=== PATIENT | male | born 1930 | race Caucasian/White ===

== ENCOUNTER 2017-05-05 09:53 | Inpatient (IN) | payer MEDICARE, BC ==
[~2017-05-05] VITALS: Ht 185.4 cm; Wt 73.2 kg
[2017-05-05] MEDS ORDERED: diltiazem 5mg/ml 5ml inj. IV ONE ×2 (10:15→11:15)
[2017-05-05 10:30] LABS: BASOPHILS % (AUTO) 0.4 % (0-1); EOSINOPHILS # (AUTO) 0.1 X10'3 (0-0.9); EOSINOPHILS % (AUTO) 1.2 % (0-6); HEMATOCRIT 37.5 % (42.0-52.0); HEMOGLOBIN 12.7 g/dl (14.0-17.9); INR 1.1 INR; LYMPHOCYTES # (AUTO) 0.6 X10'3 (1.1-4.8); LYMPHOCYTES % (AUTO) 4.8 % (21-51); MEAN CORPUSCULAR HEMOGLOBIN 31.7 PG (27.0-31.0); MEAN CORPUSCULAR VOLUME 93.3 FL (78-98); MEAN PLATELET VOLUME 7.6 FL (7.4-10.4); MONOCYTES # (AUTO) 1.1 X10'3 (0-0.9); MONOCYTES % (AUTO) 9.8 % (2-12); NEUTROPHILS # (AUTO) 9.6 X10'3 (1.8-7.7); NEUTROPHILS % (AUTO) 83.8 % (42-75); PARTIAL THROMBOPLASTIN TIME 33 SECONDS (22-32); PLATELET COUNT 240 X10'3 (140-440); PROTHROMBIN TIME 11.6 SECONDS (9.0-12.0); RED BLOOD COUNT 4.02 X10'6 (4.70-6.10); RED CELL DISTRIBUTION WIDTH 13.9 % (11.5-14.5); WHITE BLOOD COUNT 11.5 X10'3 (4.5-11.0)
[2017-05-05] MEDS ORDERED: diltiazem-D5W 125mg/125ml 125 ML IV ONE (10:30)
[2017-05-05] MEDS ORDERED: NO HOME MEDS (10:39)
[2017-05-05 10:42] LABS: ALBUMIN 2.7 G/DL (3.4-5.0); BLOOD UREA NITROGEN 29 MG/DL (7-18); CHLORIDE 109 MMOL/L (99-107)
[2017-05-05 11:00] LABS: ALANINE AMINOTRANSFERASE 20 U/L (12-78); ALBUMIN/GLOBULIN RATIO 0.8 (1.1-1.5); ALKALINE PHOSPHATASE 79 IU/L (46-116); ANION GAP 13 (8-16); ASPARTATE AMINO TRANSFERASE 17 U/L (10-37); BILIRUBIN,TOTAL 3.7 MG/DL (0.1-1.0); BUN/CREATININE RATIO 31.2 (5.4-32.0); CALCIUM 9.1 MG/DL (8.5-10.1); CREATININE 0.93 MG/DL (0.60-1.10); GLUCOSE 134 MG/DL (70-104); POTASSIUM 3.7 MMOL/L (3.5-5.1); SODIUM 145 MMOL/L (135-145); TOTAL CARBON DIOXIDE 23.4 MMOL/L (24-32); eGFR 77 ML/MIN
[2017-05-05] MEDS ORDERED: potassium Cl 20 mEq SR tablet PO PRN (13:15)
[2017-05-05] MEDS: K and/or MAG REPLACEMENT MC SCH (13:15)
[2017-05-05] MEDS ORDERED: ondansetron/PF 4mg/2ml inj IV PRN (13:15)
[2017-05-05] MEDS ORDERED: magnesium 2GM in 50ml NS 50 ML IV PRN (13:15)
[2017-05-05] MEDS ORDERED: acetaminophen 325mg tablet PO PRN ×2 (13:15)
[2017-05-05] MEDS ORDERED: magnesium 4gm in 100ml NS 100 ML IV PRN (13:15)
[2017-05-05] MEDS ORDERED: potassium Cl 40MEQ/NS 500ml 500 ML IV PRN ×2 (13:15)
[2017-05-05] MEDS ORDERED: magnesium hydroxide 30ml (MOM) UD suspension PO PRN (13:15)
[2017-05-05] MEDS ORDERED: diltiazem-D5W 125mg/125ml 125 ML IV SCH ×2 (13:15→21:15)
[2017-05-05] MEDS ORDERED: mag hydrox/Alum hydrox/simeth 30ml oral suspension PO PRN (13:15)
[2017-05-05] MEDS ORDERED: magnesium Cl slow-release 64mg tablet PO PRN (13:15)
[2017-05-05] MEDS ORDERED: HYDROcodone/acetaminophen 10/325mg tab PO PRN (13:15)
[2017-05-05] MEDS ORDERED: HYDROcodone/acetaminophen 5mg/325mg tablet PO PRN (13:15)
[2017-05-05] MEDS ORDERED: sod chloride 0.9% 10ml flush syringe IV ONE (15:00)
[2017-05-05] MEDS ORDERED: amiodarone 50MG/ML inj IV ONE (15:30)
[2017-05-05] MEDS ORDERED: amiodarone 150mg/dext, iso-os 100 ML IV ONE (15:40)
[2017-05-05] MEDS: amiodarone 150mg/dext, iso-os 100 ML IV SCH ×2 (15:52→16:10)
[2017-05-05] MEDS: diltiazem 30mg tablet PO SCH ×2 (15:54→20:15)
[2017-05-05] MEDS: heparin, porcine 5000 units/ml vial SQ SCH (16:00)
[2017-05-05] MEDS: amiodarone/D5 360MG/200ML BAG 200 ML IV SCH (16:17)
[2017-05-05] MEDS ORDERED: furosemide 20 MG/2 ML vial IV SCH (18:55)
[2017-05-05] MEDS ORDERED: diltiazem 30mg tablet PO SCH (19:00)
[2017-05-05] MEDS ORDERED: temazepam 15mg capsule PO PRN (21:00)
[2017-05-05] MEDS: LORazepam 2 mg/ml vial IV PRN (23:16)
[2017-05-05] MEDS ORDERED: amiodarone/D5 360MG/200ML BAG 200 ML IV ONE (23:46)
[2017-05-06] VITALS (14 sets, daily range): BP systolic 90–159; BP diastolic 67–138
[2017-05-06] MEDS: diltiazem 30mg tablet PO SCH ×4 (01:51→19:47)
[2017-05-06] MEDS: heparin, porcine 5000 units/ml vial SQ SCH ×3 (02:00→16:36)
[2017-05-06 02:11] LABS: ABG BASE EXCESS -1.9 mmol/L (-2.0-3.0); ABG HCO3 23.2 mmol/L (22.0-26.0); ABG OXYGEN SATURATION 89.8 % (95-98); ABG PCO2 (T) 40.9 mmHg (35.0-48.0); ABG PH (T) 7.372 (7.350-7.450); ABG PO2 (T) 60.6 mmHg (83-108); ALLEN'S TEST Positive; FCOHb 0.9 % (0.5-1.5); FLOW 15 L/min; FMetHb 0.1 % (0.3-1.12); FO2Hb 88.9 % (94-100); PATIENT TEMPERATURE 37.2; RESPIRATORY RATE (OBSERVED) 22 b/min; TOTAL HEMOGLOBIN 13.7 G/dl (14.0-18.0)
[2017-05-06 04:46] LABS: ABG HCO3 24.7 mmol/L (22.0-26.0); ABG PCO2 (T) 40.2 mmHg (35.0-48.0); ABG PH (T) 7.405 (7.350-7.450); ABG PO2 (T) 64.5 mmHg (83-108); ALLEN'S TEST Positive; FCOHb 0.5 % (0.5-1.5); FMetHb 0.1 % (0.3-1.12); FO2Hb 92.4 % (94-100); MINUTE VOLUME 17 L/min; PATIENT TEMPERATURE 36.8; RESPIRATORY RATE (OBSERVED) 21 b/min; TOTAL HEMOGLOBIN 13.5 G/dl (14.0-18.0)
[2017-05-06] MEDS: furosemide 40mg/4ml inj IV SCH ×2 (07:59→19:46)
[2017-05-06] MEDS: K and/or MAG REPLACEMENT MC SCH (08:00)
[2017-05-06] MEDS ORDERED: diltiazem-D5W 125mg/125ml 125 ML IV SCH (08:26)
[2017-05-06] MEDS: albuterol 2.5 MG/3 ML nebule NEB PRN (08:31)
[2017-05-06] MEDS: potassium Cl 20 mEq SR tablet PO SCH ×2 (08:44→19:46)
[2017-05-06 09:38] LABS: HEMATOCRIT 36.2 % (42.0-52.0); HEMOGLOBIN 12.4 g/dl (14.0-17.9); MEAN CORPUSCULAR HEMOGLOBIN 31.4 PG (27.0-31.0); MEAN CORPUSCULAR HGB CONC 34.2 % (33.0-36.5); MEAN CORPUSCULAR VOLUME 91.7 FL (78-98); MEAN PLATELET VOLUME 7.6 FL (7.4-10.4); PLATELET COUNT 244 X10'3 (140-440); RED BLOOD COUNT 3.95 X10'6 (4.70-6.10); RED CELL DISTRIBUTION WIDTH 13.7 % (11.5-14.5); WHITE BLOOD COUNT 14.9 X10'3 (4.5-11.0)
[2017-05-06 09:54] LABS: ALBUMIN 2.4 G/DL (3.4-5.0); ANION GAP 8 (8-16); BLOOD UREA NITROGEN 29 MG/DL (7-18); BUN/CREATININE RATIO 28.4 (5.4-32.0); CHLORIDE 107 MMOL/L (99-107); CHOL/HDL RATIO 2.3 (0.00-4.99); CHOLESTEROL 105 MG/DL (0-200); CREATININE 1.02 MG/DL (0.60-1.10); GLUCOSE 133 MG/DL (70-104); HDL CHOLESTEROL 46 MG/DL (35-60); LDL CHOLESTEROL 48 MG/DL (50-100); PHOSPHORUS 3.6 MG/DL (2.3-4.5); POTASSIUM 3.4 MMOL/L (3.5-5.1); SODIUM 144 MMOL/L (135-145); TOTAL CARBON DIOXIDE 29.2 MMOL/L (24-32); TRIGLYCERIDES 52 MG/DL (20-135); eGFR 70 ML/MIN
[2017-05-06] MEDS: potassium Cl 20 mEq SR tablet PO PRN ×3 (10:44→19:46)
[2017-05-06] MEDS: amiodarone/D5 360MG/200ML BAG 200 ML IV SCH (12:57)
[2017-05-07] VITALS (14 sets, daily range): BP systolic 91–136; BP diastolic 64–97
[2017-05-07] MEDS: amiodarone/D5 450MG/250ML BAG 250 ML IV SCH ×2 (00:49→17:44)
[2017-05-07] MEDS: heparin, porcine 5000 units/ml vial SQ SCH ×3 (00:55→16:54)
[2017-05-07] MEDS: diltiazem 30mg tablet PO SCH ×4 (01:52→21:34)
[2017-05-07 05:23] LABS: HEMOGLOBIN 12.8 g/dl (14.0-17.9); MEAN CORPUSCULAR HEMOGLOBIN 31.3 PG (27.0-31.0); MEAN CORPUSCULAR HGB CONC 33.7 % (33.0-36.5); MEAN CORPUSCULAR VOLUME 92.8 FL (78-98); MEAN PLATELET VOLUME 7.7 FL (7.4-10.4); PLATELET COUNT 245 X10'3 (140-440); RED BLOOD COUNT 4.09 X10'6 (4.70-6.10); RED CELL DISTRIBUTION WIDTH 13.7 % (11.5-14.5); WHITE BLOOD COUNT 12.6 X10'3 (4.5-11.0)
[2017-05-07 06:17] LABS: ALBUMIN 2.2 G/DL (3.4-5.0); ANION GAP 8 (8-16); BLOOD UREA NITROGEN 27 MG/DL (7-18); BUN/CREATININE RATIO 24.8 (5.4-32.0); CHLORIDE 106 MMOL/L (99-107); CREATININE 1.09 MG/DL (0.60-1.10); GLUCOSE 135 MG/DL (70-104); PHOSPHORUS 3.1 MG/DL (2.3-4.5); SODIUM 144 MMOL/L (135-145); TOTAL CARBON DIOXIDE 29.8 MMOL/L (24-32); eGFR 64 ML/MIN
[2017-05-07] MEDS: K and/or MAG REPLACEMENT MC SCH (08:00)
[2017-05-07] MEDS: potassium Cl 20 mEq SR tablet PO SCH ×2 (08:01→21:35)
[2017-05-07] MEDS: furosemide 40mg/4ml inj IV SCH ×2 (08:02→21:34)
[2017-05-07] MEDS: LORazepam 2 mg/ml vial IV PRN (08:03)
[2017-05-08] VITALS (14 sets, daily range): BP systolic 93–120; BP diastolic 56–86
[2017-05-08] MEDS: diltiazem 30mg tablet PO SCH ×4 (02:18→20:39)
[2017-05-08 05:26] LABS: HEMATOCRIT 41.9 % (42.0-52.0); HEMOGLOBIN 14.1 g/dl (14.0-17.9); MEAN CORPUSCULAR HEMOGLOBIN 31.1 PG (27.0-31.0); MEAN CORPUSCULAR HGB CONC 33.7 % (33.0-36.5); MEAN CORPUSCULAR VOLUME 92.1 FL (78-98); MEAN PLATELET VOLUME 7.8 FL (7.4-10.4); PLATELET COUNT 279 X10'3 (140-440); RED BLOOD COUNT 4.55 X10'6 (4.70-6.10); RED CELL DISTRIBUTION WIDTH 13.7 % (11.5-14.5); WHITE BLOOD COUNT 13.7 X10'3 (4.5-11.0)
[2017-05-08 06:05] LABS: ALBUMIN 2.3 G/DL (3.4-5.0); ANION GAP 11 (8-16); BLOOD UREA NITROGEN 30 MG/DL (7-18); CALCIUM 9.3 MG/DL (8.5-10.1); CHLORIDE 102 MMOL/L (99-107); CREATININE 1.11 MG/DL (0.60-1.10); GLUCOSE 131 MG/DL (70-104); PHOSPHORUS 3.2 MG/DL (2.3-4.5); POTASSIUM 3.6 MMOL/L (3.5-5.1); SODIUM 143 MMOL/L (135-145); TOTAL CARBON DIOXIDE 29.8 MMOL/L (24-32); eGFR 63 ML/MIN
[2017-05-08] MEDS: furosemide 40mg/4ml inj IV SCH ×2 (07:49→21:56)
[2017-05-08] MEDS: heparin, porcine 5000 units/ml vial SQ SCH ×4 (07:50→23:58)
[2017-05-08] MEDS: potassium Cl 20 mEq SR tablet PO SCH ×2 (07:50→20:38)
[2017-05-08] MEDS: K and/or MAG REPLACEMENT MC SCH (07:51)
[2017-05-08] MEDS: amiodarone 200mg tablet PO SCH ×2 (13:20→20:40)
[2017-05-09] VITALS (13 sets, daily range): BP systolic 90–118; BP diastolic 47–79
[2017-05-09] MEDS: diltiazem 30mg tablet PO SCH ×4 (02:54→19:13)
[2017-05-09 05:16] LABS: HEMATOCRIT 41.1 % (42.0-52.0); HEMOGLOBIN 13.8 g/dl (14.0-17.9); MEAN CORPUSCULAR HEMOGLOBIN 31.2 PG (27.0-31.0); MEAN CORPUSCULAR HGB CONC 33.5 % (33.0-36.5); MEAN CORPUSCULAR VOLUME 93.2 FL (78-98); MEAN PLATELET VOLUME 8.1 FL (7.4-10.4); PLATELET COUNT 283 X10'3 (140-440); RED BLOOD COUNT 4.41 X10'6 (4.70-6.10); RED CELL DISTRIBUTION WIDTH 13.9 % (11.5-14.5); WHITE BLOOD COUNT 13.9 X10'3 (4.5-11.0)
[2017-05-09 05:39] LABS: ALBUMIN 2.1 G/DL (3.4-5.0); ANION GAP 10 (8-16); BLOOD UREA NITROGEN 33 MG/DL (7-18); CALCIUM 9.3 MG/DL (8.5-10.1); CHLORIDE 101 MMOL/L (99-107); GLUCOSE 130 MG/DL (70-104); MAGNESIUM 1.9 MG/DL (1.5-2.4); PHOSPHORUS 3.4 MG/DL (2.3-4.5); POTASSIUM 3.9 MMOL/L (3.5-5.1); SODIUM 142 MMOL/L (135-145); TOTAL CARBON DIOXIDE 31.3 MMOL/L (24-32); eGFR 64 ML/MIN
[2017-05-09] MEDS: amiodarone/D5 450MG/250ML BAG 250 ML IV SCH ×2 (05:59→20:45)
[2017-05-09] MEDS: K and/or MAG REPLACEMENT MC SCH (08:00)
[2017-05-09] MEDS: amiodarone 200mg tablet PO SCH ×2 (09:02→19:12)
[2017-05-09] MEDS: heparin, porcine 5000 units/ml vial SQ SCH ×2 (09:03→17:03)
[2017-05-09] MEDS: potassium Cl 20 mEq SR tablet PO SCH ×2 (09:03→19:12)
[2017-05-09] MEDS: furosemide 40mg/4ml inj IV SCH ×2 (09:05→20:43)
[2017-05-09 10:50] LABS: ABG BASE EXCESS 3.9 mmol/L (-2.0-3.0); ABG OXYGEN SATURATION 90.6 % (95-98); ABG PCO2 (T) 35.8 mmHg (35.0-48.0); ABG PH (T) 7.495 (7.350-7.450); ABG PO2 (T) 57.8 mmHg (83-108); ALLEN'S TEST Positive; FCOHb 0.4 % (0.5-1.5); FLOW 15 L/min; FMetHb 0.1 % (0.3-1.12); FO2Hb 90.1 % (94-100); RESPIRATORY RATE (OBSERVED) 18 b/min
[2017-05-09] MEDS ORDERED: iohexol 350MG/ML 100ml bottle IV ONE (11:47)
[2017-05-09] MEDS: azithromycin 250mg tablet PO SCH (17:02)
[2017-05-09] MEDS: cefTRIAXone 1g/NS 100ml IVPB 100 ML IV SCH (17:07)
[2017-05-09] MEDS: Protein Shake (high protein) 240ml (8oz) cup PO SCH (18:00)
[2017-05-09] MEDS: lactobacillus rhamnosus 10,000 MMU CELLS/CAPSULE PO SCH (19:13)
[2017-05-09] MEDS: albuterol 2.5 MG/3 ML nebule NEB PRN (20:50)
[2017-05-10] VITALS (8 sets, daily range): BP systolic 94–118; BP diastolic 63–72
[2017-05-10] MEDS: heparin, porcine 5000 units/ml vial SQ SCH (00:06)
[2017-05-10] MEDS: diltiazem 30mg tablet PO SCH ×4 (02:17→19:44)
[2017-05-10 05:19] LABS: BASOPHILS # (AUTO) 0.1 X10'3 (0-0.2); BASOPHILS % (AUTO) 0.5 % (0-1); EOSINOPHILS # (AUTO) 0.2 X10'3 (0-0.9); EOSINOPHILS % (AUTO) 1.1 % (0-6); HEMATOCRIT 38.5 % (42.0-52.0); HEMOGLOBIN 13.1 g/dl (14.0-17.9); LYMPHOCYTES # (AUTO) 0.5 X10'3 (1.1-4.8); LYMPHOCYTES % (AUTO) 3.3 % (21-51); MEAN CORPUSCULAR HEMOGLOBIN 31.1 PG (27.0-31.0); MEAN CORPUSCULAR HGB CONC 34.1 % (33.0-36.5); MEAN CORPUSCULAR VOLUME 91.3 FL (78-98); MEAN PLATELET VOLUME 7.8 FL (7.4-10.4); MONOCYTES # (AUTO) 0.9 X10'3 (0-0.9); MONOCYTES % (AUTO) 5.8 % (2-12); NEUTROPHILS # (AUTO) 14.4 X10'3 (1.8-7.7); NEUTROPHILS % (AUTO) 89.3 % (42-75); PLATELET COUNT 266 X10'3 (140-440); RED BLOOD COUNT 4.22 X10'6 (4.70-6.10); RED CELL DISTRIBUTION WIDTH 13.8 % (11.5-14.5); WHITE BLOOD COUNT 16.1 X10'3 (4.5-11.0)
[2017-05-10 05:28] LABS: ALBUMIN 1.8 G/DL (3.4-5.0); ANION GAP 8 (8-16); BLOOD UREA NITROGEN 34 MG/DL (7-18); BUN/CREATININE RATIO 30.1 (5.4-32.0); CHLORIDE 102 MMOL/L (99-107); CREATININE 1.13 MG/DL (0.60-1.10); GLUCOSE 134 MG/DL (70-104); MAGNESIUM 2.1 MG/DL (1.5-2.4); PHOSPHORUS 3.4 MG/DL (2.3-4.5); POTASSIUM 4.1 MMOL/L (3.5-5.1); SODIUM 142 MMOL/L (135-145); TOTAL CARBON DIOXIDE 32.5 MMOL/L (24-32); eGFR 62 ML/MIN
[2017-05-10] MEDS ORDERED: potassium Cl 20 mEq SR tablet PO SCH (08:00)
[2017-05-10] MEDS: Protein Shake (high protein) 240ml (8oz) cup PO SCH ×3 (08:00→19:43)
[2017-05-10] MEDS: furosemide 40mg tablet PO SCH (08:00)
[2017-05-10] MEDS: K and/or MAG REPLACEMENT MC SCH (08:00)
[2017-05-10] MEDS ORDERED: furosemide 20MG tablet PO SCH (08:00)
[2017-05-10] MEDS: cefTRIAXone 1g/NS 100ml IVPB 100 ML IV SCH (08:17)
[2017-05-10] MEDS: amiodarone 200mg tablet PO SCH ×2 (08:20→19:44)
[2017-05-10] MEDS: lactobacillus rhamnosus 10,000 MMU CELLS/CAPSULE PO SCH ×2 (08:39→19:43)
[2017-05-10] MEDS: azithromycin 250mg tablet PO SCH (08:40)
[2017-05-10] MEDS: apixaban 5mg tablet PO SCH ×2 (10:53→19:43)
[2017-05-10 22:41] LABS: ABG BASE EXCESS 3.7 mmol/L (-2.0-3.0); ABG PCO2 (T) 35.6 mmHg (35.0-48.0); ABG PH (T) 7.494 (7.350-7.450); ABG PO2 (T) 55.2 mmHg (83-108); ALLEN'S TEST Positive; FLOW 55 L/min
[2017-05-11] VITALS (21 sets, daily range): BP systolic 80–136; BP diastolic 60–83
[2017-05-11 00:01] LABS: ABG BASE EXCESS 6.4 mmol/L (-2.0-3.0); ABG HCO3 29.8 mmol/L (22.0-26.0); ABG OXYGEN SATURATION 88.4 % (95-98); ABG PCO2 (T) 38.7 mmHg (35.0-48.0); ABG PH (T) 7.505 (7.350-7.450); ABG PO2 (T) 56.1 mmHg (83-108); ALLEN'S TEST Positive; FCOHb 0.4 % (0.5-1.5); FMetHb 0.3 % (0.3-1.12); FO2Hb 87.8 % (94-100); MINUTE VOLUME 26 L/min; PATIENT TEMPERATURE 37.1; RESPIRATORY RATE 18 b/min; RESPIRATORY RATE (OBSERVED) 32 b/min; TOTAL HEMOGLOBIN 14.4 G/dl (14.0-18.0)
[2017-05-11] MEDS: LORazepam 2 mg/ml vial IV PRN (00:34)
[2017-05-11] MEDS ORDERED: methylPREDNISolone sod succ 125mg/2ml vial IV SCH (01:15)
[2017-05-11] MEDS: diltiazem 30mg tablet PO SCH ×4 (02:00→20:00)
[2017-05-11] MEDS ORDERED: LORazepam 2 mg/ml vial IV ONE (02:05)
[2017-05-11 02:46] LABS: ABG BASE EXCESS 6.7 mmol/L (-2.0-3.0); ABG HCO3 31.2 mmol/L (22.0-26.0); ABG OXYGEN SATURATION 83.7 % (95-98); ABG PCO2 (T) 44.1 mmHg (35.0-48.0); ABG PH (T) 7.468 (7.350-7.450); ABG PO2 (T) 48.9 mmHg (83-108); ALLEN'S TEST Positive; FCOHb 0.3 % (0.5-1.5); FMetHb 0.2 % (0.3-1.12); FO2Hb 83.3 % (94-100); PATIENT TEMPERATURE 37.2; TOTAL HEMOGLOBIN 14.1 G/dl (14.0-18.0)
[2017-05-11 02:56] LABS: ABG BASE EXCESS 4.9 mmol/L (-2.0-3.0); ABG HCO3 29.3 mmol/L (22.0-26.0); ABG OXYGEN SATURATION 89.3 % (95-98); ABG PCO2 (T) 41.7 mmHg (35.0-48.0); ABG PH (T) 7.463 (7.350-7.450); ABG PO2 (T) 58.2 mmHg (83-108); ALLEN'S TEST Positive; FCOHb 0.4 % (0.5-1.5); FLOW 55 L/min; FMetHb 0.2 % (0.3-1.12); FO2Hb 88.8 % (94-100); PATIENT TEMPERATURE 36.8; TOTAL HEMOGLOBIN 14.1 G/dl (14.0-18.0)
[2017-05-11] MEDS ORDERED: morphine 4 MG/ML inj SYRINge IV PRN (03:40)
[2017-05-11] MEDS ORDERED: morphine 2 MG/ML inj. syringe IV PRN (03:45)
[2017-05-11] MEDS ORDERED: fentaNYL/PF 50MCG/1 ML 2ML syringe IV PRN (04:05)
[2017-05-11] MEDS ORDERED: ipratropium/albuterol 3ml nebule NEB PRN (04:05)
[2017-05-11] MEDS ORDERED: etomidate 2mg/ml inj. IV ONE (04:05)
[2017-05-11] MEDS ORDERED: MIDAZolam 5mg/ml 2ml vial IV ONE (04:05)
[2017-05-11] MEDS ORDERED: midazolam 2 mg/2 ml injection IV ONE (04:05)
[2017-05-11] MEDS: morphine 4 MG/ML inj SYRINge IV PRN (04:07)
[2017-05-11] MEDS ORDERED: MIDAZolam 5mg/ml 2ml vial ONE (04:07)
[2017-05-11] MEDS: FENTANYL-0.9 % NACL/PF 100 ML IV PRN (04:40)
[2017-05-11] MEDS ORDERED: normal saline 1000ml 1,000 ML IV SCH (04:53)
[2017-05-11 05:00] LABS: ABG BASE EXCESS 4.5 mmol/L (-2.0-3.0); ABG HCO3 30.4 mmol/L (22.0-26.0); ABG OXYGEN SATURATION 93.5 % (95-98); ABG PCO2 (T) 49.7 mmHg (35.0-48.0); ABG PH (T) 7.404 (7.350-7.450); ABG PO2 (T) 75.5 mmHg (83-108); ALLEN'S TEST Positive; FCOHb 0.3 % (0.5-1.5); FMetHb 0.2 % (0.3-1.12); MINUTE VOLUME 11 L/min; PATIENT TEMPERATURE 36.8; PEEP 10 cm H2O; RESPIRATORY RATE 20 b/min; RESPIRATORY RATE (OBSERVED) 26 b/min; TIDAL VOLUME 400 mL; TOTAL HEMOGLOBIN 14.3 G/dl (14.0-18.0)
[2017-05-11 05:37] LABS: BASOPHILS % (AUTO) 0.2 % (0-1); EOSINOPHILS # (AUTO) 0.2 X10'3 (0-0.9); EOSINOPHILS % (AUTO) 0.9 % (0-6); HEMATOCRIT 42.4 % (42.0-52.0); HEMOGLOBIN 13.9 g/dl (14.0-17.9); LYMPHOCYTES # (AUTO) 0.4 X10'3 (1.1-4.8); LYMPHOCYTES % (AUTO) 2.3 % (21-51); MEAN CORPUSCULAR HEMOGLOBIN 30.7 PG (27.0-31.0); MEAN CORPUSCULAR HGB CONC 32.9 % (33.0-36.5); MEAN CORPUSCULAR VOLUME 93.3 FL (78-98); MONOCYTES # (AUTO) 0.5 X10'3 (0-0.9); MONOCYTES % (AUTO) 3.1 % (2-12); NEUTROPHILS # (AUTO) 16.4 X10'3 (1.8-7.7); NEUTROPHILS % (AUTO) 93.5 % (42-75); PLATELET COUNT 316 X10'3 (140-440); RED BLOOD COUNT 4.54 X10'6 (4.70-6.10); RED CELL DISTRIBUTION WIDTH 13.9 % (11.5-14.5); WHITE BLOOD COUNT 17.5 X10'3 (4.5-11.0)
[2017-05-11 05:53] LABS: ALBUMIN 1.8 G/DL (3.4-5.0); ANION GAP 9 (8-16); BLOOD UREA NITROGEN 45 MG/DL (7-18); BUN/CREATININE RATIO 41.3 (5.4-32.0); CALCIUM 9.5 MG/DL (8.5-10.1); CHLORIDE 103 MMOL/L (99-107); CREATININE 1.09 MG/DL (0.60-1.10); GLUCOSE 153 MG/DL (70-104); MAGNESIUM 2.4 MG/DL (1.5-2.4); POTASSIUM 4.1 MMOL/L (3.5-5.1); SODIUM 142 MMOL/L (135-145); TOTAL CARBON DIOXIDE 29.6 MMOL/L (24-32); eGFR 64 ML/MIN
[2017-05-11] MEDS: Protein Shake (high protein) 240ml (8oz) cup PO SCH ×3 (08:00→18:00)
[2017-05-11] MEDS: K and/or MAG REPLACEMENT MC SCH (08:00)
[2017-05-11] MEDS ORDERED: potassium Cl oral solution 20 MEQ/15 ML PO ONE (08:20)
[2017-05-11] MEDS: cefTRIAXone 1g/NS 100ml IVPB 100 ML IV SCH (08:35)
[2017-05-11] MEDS: azithromycin 250mg tablet PO SCH (08:36)
[2017-05-11] MEDS: methylPREDNISolone sod succ 125mg/2ml vial IV SCH ×3 (08:36→20:45)
[2017-05-11] MEDS: potassium Cl oral solution 20 MEQ/15 ML PO SCH (08:36)
[2017-05-11] MEDS: amiodarone 200mg tablet PO SCH ×2 (08:37→20:45)
[2017-05-11] MEDS: furosemide 40mg tablet PO SCH (08:38)
[2017-05-11] MEDS: lactobacillus rhamnosus 10,000 MMU CELLS/CAPSULE PO SCH ×2 (08:38→20:48)
[2017-05-11] MEDS: apixaban 5mg tablet PO SCH ×2 (08:50→20:45)
[2017-05-11] MEDS: ipratropium/albuterol 3ml nebule NEB SCH ×2 (19:19→23:11)
[2017-05-12] VITALS (21 sets, daily range): BP systolic 67–117; BP diastolic 57–84
[2017-05-12] MEDS: diltiazem 30mg tablet PO SCH ×5 (02:00→20:00)
[2017-05-12] MEDS: methylPREDNISolone sod succ 125mg/2ml vial IV SCH ×4 (02:26→20:01)
[2017-05-12] MEDS: ipratropium/albuterol 3ml nebule NEB SCH ×4 (03:08→21:13)
[2017-05-12 03:22] LABS: BASOPHILS % (AUTO) 0 % (0-1); EOSINOPHILS # (AUTO) 0.3 X10'3 (0-0.9); EOSINOPHILS % (AUTO) 2.1 % (0-6); HEMATOCRIT 38.8 % (42.0-52.0); LYMPHOCYTES # (AUTO) 0.4 X10'3 (1.1-4.8); LYMPHOCYTES % (AUTO) 2.4 % (21-51); MEAN CORPUSCULAR HEMOGLOBIN 30.6 PG (27.0-31.0); MEAN CORPUSCULAR HGB CONC 33.4 % (33.0-36.5); MEAN CORPUSCULAR VOLUME 91.6 FL (78-98); MONOCYTES # (AUTO) 0.4 X10'3 (0-0.9); MONOCYTES % (AUTO) 2.4 % (2-12); NEUTROPHILS # (AUTO) 14.1 X10'3 (1.8-7.7); NEUTROPHILS % (AUTO) 93.1 % (42-75); PLATELET COUNT 278 X10'3 (140-440); RED BLOOD COUNT 4.24 X10'6 (4.70-6.10); RED CELL DISTRIBUTION WIDTH 14.1 % (11.5-14.5); WHITE BLOOD COUNT 15.2 X10'3 (4.5-11.0)
[2017-05-12 03:26] LABS: ABG BASE EXCESS 1.5 mmol/L (-2.0-3.0); ABG HCO3 26.9 mmol/L (22.0-26.0); ABG OXYGEN SATURATION 98.6 % (95-98); ABG PCO2 (T) 43.1 mmHg (35.0-48.0); ABG PH (T) 7.409 (7.350-7.450); ABG PO2 (T) 132.2 mmHg (83-108); ALLEN'S TEST Positive; FCOHb 0.2 % (0.5-1.5); FMetHb 0.3 % (0.3-1.12); FO2Hb 98.1 % (94-100); MINUTE VOLUME 11 L/min; PEEP 5 cm H2O; RESPIRATORY RATE 20 b/min; RESPIRATORY RATE (OBSERVED) 24 b/min; TIDAL VOLUME 400 mL; TOTAL HEMOGLOBIN 14.1 G/dl (14.0-18.0)
[2017-05-12 03:37] LABS: ALBUMIN 1.7 G/DL (3.4-5.0); ANION GAP 6 (8-16); BLOOD UREA NITROGEN 60 MG/DL (7-18); BUN/CREATININE RATIO 50.4 (5.4-32.0); CALCIUM 9.3 MG/DL (8.5-10.1); CHLORIDE 106 MMOL/L (99-107); CREATININE 1.19 MG/DL (0.60-1.10); GLUCOSE 177 MG/DL (70-104); MAGNESIUM 2.7 MG/DL (1.5-2.4); POTASSIUM 4.1 MMOL/L (3.5-5.1); PREALBUMIN 7.9 MG/DL (19-36); SODIUM 145 MMOL/L (135-145); TOTAL CARBON DIOXIDE 32.8 MMOL/L (24-32); eGFR 58 ML/MIN
[2017-05-12] MEDS: apixaban 5mg tablet PO SCH ×2 (07:53→20:01)
[2017-05-12] MEDS: amiodarone 200mg tablet PO SCH ×2 (07:53→20:01)
[2017-05-12] MEDS: Protein Shake (high protein) 240ml (8oz) cup PO SCH ×3 (07:54→17:13)
[2017-05-12] MEDS: furosemide 40mg tablet PO SCH (07:54)
[2017-05-12] MEDS: lactobacillus rhamnosus 10,000 MMU CELLS/CAPSULE PO SCH ×2 (07:54→20:01)
[2017-05-12] MEDS: azithromycin 250mg tablet PO SCH (07:55)
[2017-05-12] MEDS: cefTRIAXone 1g/NS 100ml IVPB 100 ML IV SCH (07:55)
[2017-05-12] MEDS: K and/or MAG REPLACEMENT MC SCH (08:00)
[2017-05-12] MEDS: mineral oil/petrolatum ophthal oint EACHEYE SCH ×3 (08:05→20:01)
[2017-05-12] MEDS ORDERED: albuterol 2.5 MG/3 ML nebule NEB PRN (10:55)
[2017-05-12] MEDS: midazolam 100mg in NS 100ml 100 ML IV PRN (11:02)
[2017-05-12] MEDS ORDERED: dextrose ORAL solution 15 GM/59 ML bottle PO PRN ×2 (12:40)
[2017-05-12] MEDS ORDERED: MESSAGE TO PHARMACY PO ONE (12:40)
[2017-05-12] MEDS ORDERED: dextrose 50%-water 50ml dispensing syringe IV PRN (12:40)
[2017-05-12] MEDS ORDERED: glucagon, human recombinant 1mg kit SUBCUT PRN (12:40)
[2017-05-12] MEDS: FENTANYL-0.9 % NACL/PF 100 ML IV PRN (13:14)
[2017-05-12] MEDS: insulin regular, human vial - multi-dose SQ SCH ×2 (14:38→20:09)
[2017-05-12] MEDS: insulin glargine (Lantus) pen - multi-dose SQ SCH (20:11)
[2017-05-13] VITALS (28 sets, daily range): BP systolic 75–114; BP diastolic 42–76
[2017-05-13] MEDS: diltiazem 30mg tablet PO SCH ×4 (02:00→20:00)
[2017-05-13] MEDS: methylPREDNISolone sod succ 125mg/2ml vial IV SCH ×4 (02:22→20:18)
[2017-05-13] MEDS: mineral oil/petrolatum ophthal oint EACHEYE SCH ×4 (02:22→20:25)
[2017-05-13 03:00] LABS: BASOPHILS % (AUTO) 0 % (0-1); EOSINOPHILS # (AUTO) 0.2 X10'3 (0-0.9); EOSINOPHILS % (AUTO) 1.2 % (0-6); HEMATOCRIT 39.1 % (42.0-52.0); HEMOGLOBIN 13.1 g/dl (14.0-17.9); LYMPHOCYTES # (AUTO) 0.3 X10'3 (1.1-4.8); LYMPHOCYTES % (AUTO) 1.4 % (21-51); MEAN CORPUSCULAR HEMOGLOBIN 31.1 PG (27.0-31.0); MEAN CORPUSCULAR HGB CONC 33.4 % (33.0-36.5); MEAN CORPUSCULAR VOLUME 93.2 FL (78-98); MEAN PLATELET VOLUME 7.8 FL (7.4-10.4); MONOCYTES # (AUTO) 0.4 X10'3 (0-0.9); MONOCYTES % (AUTO) 2.4 % (2-12); NEUTROPHILS # (AUTO) 17.7 X10'3 (1.8-7.7); PLATELET COUNT 291 X10'3 (140-440); RED CELL DISTRIBUTION WIDTH 13.8 % (11.5-14.5); WHITE BLOOD COUNT 18.7 X10'3 (4.5-11.0)
[2017-05-13 03:12] LABS: ALBUMIN 1.7 G/DL (3.4-5.0); ANION GAP 7 (8-16); BLOOD UREA NITROGEN 70 MG/DL (7-18); BUN/CREATININE RATIO 65.4 (5.4-32.0); CALCIUM 9.3 MG/DL (8.5-10.1); CHLORIDE 108 MMOL/L (99-107); CREATININE 1.07 MG/DL (0.60-1.10); GLUCOSE 161 MG/DL (70-104); POTASSIUM 3.9 MMOL/L (3.5-5.1); SODIUM 147 MMOL/L (135-145); TOTAL CARBON DIOXIDE 32.4 MMOL/L (24-32); eGFR 66 ML/MIN
[2017-05-13] MEDS: ipratropium/albuterol 3ml nebule NEB SCH ×4 (03:24→20:54)
[2017-05-13] MEDS: insulin regular, human vial - multi-dose SQ SCH ×3 (03:44→20:16)
[2017-05-13 04:41] LABS: ABG BASE EXCESS 4.4 mmol/L (-2.0-3.0); ABG HCO3 29.3 mmol/L (22.0-26.0); ABG OXYGEN SATURATION 85.7 % (95-98); ABG PCO2 (T) 42.5 mmHg (35.0-48.0); ABG PH (T) 7.452 (7.350-7.450); ABG PO2 (T) 47.5 mmHg (83-108); ALLEN'S TEST Positive; FMetHb 0.3 % (0.3-1.12); FO2Hb 85.4 % (94-100); MINUTE VOLUME 11 L/min; PEEP 5 cm H2O; RESPIRATORY RATE 20 b/min; RESPIRATORY RATE (OBSERVED) 24 b/min; TIDAL VOLUME 400 mL; TOTAL HEMOGLOBIN 14.2 G/dl (14.0-18.0)
[2017-05-13] MEDS: amiodarone 200mg tablet PO SCH ×2 (07:32→19:52)
[2017-05-13] MEDS: cefTRIAXone 1g/NS 100ml IVPB 100 ML IV SCH (07:32)
[2017-05-13] MEDS: lactobacillus rhamnosus 10,000 MMU CELLS/CAPSULE PO SCH ×2 (07:32→19:52)
[2017-05-13] MEDS: apixaban 5mg tablet PO SCH ×2 (07:32→19:52)
[2017-05-13] MEDS: azithromycin 250mg tablet PO SCH (07:32)
[2017-05-13] MEDS: potassium Cl oral solution 20 MEQ/15 ML PO SCH (08:00)
[2017-05-13] MEDS: K and/or MAG REPLACEMENT MC SCH (08:00)
[2017-05-13] MEDS: Protein Shake (high protein) 240ml (8oz) cup PO SCH ×3 (08:00→15:58)
[2017-05-13] MEDS: furosemide 40mg tablet PO SCH (08:00)
[2017-05-13] MEDS ORDERED: HUMAN PROTHROMBIN COMPLX(PCC) 500 UNIT KIT IV ONE (08:34)
[2017-05-13] MEDS: FENTANYL-0.9 % NACL/PF 100 ML IV PRN (14:38)
[2017-05-13] MEDS: midazolam 100mg in NS 100ml 100 ML IV PRN (16:38)
[2017-05-13] MEDS: insulin glargine (Lantus) pen - multi-dose SQ SCH (20:17)
[2017-05-13] MEDS ORDERED: digoxin 250mcg/ml 2ml ampule IV ONE (21:50)
[2017-05-14] VITALS (24 sets, daily range): BP systolic 79–132; BP diastolic 50–80
[2017-05-14] MEDS: mineral oil/petrolatum ophthal oint EACHEYE SCH ×4 (02:00→20:48)
[2017-05-14] MEDS: diltiazem 30mg tablet PO SCH ×4 (02:00→20:35)
[2017-05-14] MEDS: ipratropium/albuterol 3ml nebule NEB SCH ×4 (02:23→20:58)
[2017-05-14 02:40] LABS: ABG BASE EXCESS 6.4 mmol/L (-2.0-3.0); ABG HCO3 31.7 mmol/L (22.0-26.0); ABG OXYGEN SATURATION 95.5 % (95-98); ABG PCO2 (T) 48.4 mmHg (35.0-48.0); ABG PH (T) 7.435 (7.350-7.450); ABG PO2 (T) 80.6 mmHg (83-108); ALLEN'S TEST Positive; FMetHb 0.3 % (0.3-1.12); FO2Hb 95.2 % (94-100); MINUTE VOLUME 10 L/min; PATIENT TEMPERATURE 37.2; PEEP 5 cm H2O; RESPIRATORY RATE 20 b/min; RESPIRATORY RATE (OBSERVED) 22 b/min; TIDAL VOLUME 400 mL
[2017-05-14] MEDS: insulin regular, human vial - multi-dose SQ SCH ×4 (03:02→20:46)
[2017-05-14 03:07] LABS: BASOPHILS % (AUTO) 0 % (0-1); EOSINOPHILS # (AUTO) 0.3 X10'3 (0-0.9); EOSINOPHILS % (AUTO) 1.8 % (0-6); HEMATOCRIT 40.2 % (42.0-52.0); HEMOGLOBIN 13.1 g/dl (14.0-17.9); LYMPHOCYTES # (AUTO) 0.2 X10'3 (1.1-4.8); LYMPHOCYTES % (AUTO) 1.2 % (21-51); MEAN CORPUSCULAR HEMOGLOBIN 30.4 PG (27.0-31.0); MEAN CORPUSCULAR HGB CONC 32.6 % (33.0-36.5); MEAN CORPUSCULAR VOLUME 93.3 FL (78-98); MEAN PLATELET VOLUME 7.8 FL (7.4-10.4); MONOCYTES # (AUTO) 0.4 X10'3 (0-0.9); MONOCYTES % (AUTO) 2.6 % (2-12); NEUTROPHILS # (AUTO) 14.8 X10'3 (1.8-7.7); NEUTROPHILS % (AUTO) 94.4 % (42-75); PLATELET COUNT 304 X10'3 (140-440); RED BLOOD COUNT 4.31 X10'6 (4.70-6.10); RED CELL DISTRIBUTION WIDTH 13.8 % (11.5-14.5); WHITE BLOOD COUNT 15.7 X10'3 (4.5-11.0)
[2017-05-14] MEDS: digoxin 250mcg/ml 2ml ampule IV SCH ×2 (03:13→09:27)
[2017-05-14 03:20] LABS: ALBUMIN 1.7 G/DL (3.4-5.0); ANION GAP 4 (8-16); BLOOD UREA NITROGEN 69 MG/DL (7-18); BUN/CREATININE RATIO 65.7 (5.4-32.0); CALCIUM 9.5 MG/DL (8.5-10.1); CHLORIDE 108 MMOL/L (99-107); CREATININE 1.05 MG/DL (0.60-1.10); GLUCOSE 152 MG/DL (70-104); POTASSIUM 4.6 MMOL/L (3.5-5.1); SODIUM 145 MMOL/L (135-145); eGFR 67 ML/MIN
[2017-05-14] MEDS: methylPREDNISolone sod succ 125mg/2ml vial IV SCH ×4 (03:24→20:33)
[2017-05-14] MEDS: K and/or MAG REPLACEMENT MC SCH (08:00)
[2017-05-14] MEDS: Protein Shake (high protein) 240ml (8oz) cup PO SCH ×3 (08:00→15:03)
[2017-05-14] MEDS: amiodarone 200mg tablet PO SCH (08:00)
[2017-05-14] MEDS: azithromycin 250mg tablet PO SCH (09:26)
[2017-05-14] MEDS: cefTRIAXone 1g/NS 100ml IVPB 100 ML IV SCH (09:26)
[2017-05-14] MEDS: potassium Cl oral solution 20 MEQ/15 ML PO SCH (09:26)
[2017-05-14] MEDS: apixaban 5mg tablet PO SCH ×2 (09:27→20:35)
[2017-05-14] MEDS: furosemide 40mg tablet PO SCH (09:27)
[2017-05-14] MEDS: lactobacillus rhamnosus 10,000 MMU CELLS/CAPSULE PO SCH ×2 (10:39→20:34)
[2017-05-14] MEDS: amiodarone/D5 450MG/250ML BAG 250 ML IV SCH (15:09)
[2017-05-14] MEDS: midazolam 100mg in NS 100ml 100 ML IV PRN (17:07)
[2017-05-14] MEDS: FENTANYL-0.9 % NACL/PF 100 ML IV PRN (17:09)
[2017-05-14] MEDS: insulin glargine (Lantus) pen - multi-dose SQ SCH (20:47)
[2017-05-15] VITALS (13 sets, daily range): BP systolic 103–145; BP diastolic 55–84
[2017-05-15] MEDS: methylPREDNISolone sod succ 125mg/2ml vial IV SCH ×2 (04:03→07:50)
[2017-05-15] MEDS: diltiazem 30mg tablet PO SCH ×2 (04:08→07:51)
[2017-05-15] MEDS: mineral oil/petrolatum ophthal oint EACHEYE SCH ×2 (04:09→07:50)
[2017-05-15 04:41] LABS: BASOPHILS % (AUTO) 0 % (0-1); EOSINOPHILS # (AUTO) 0.3 X10'3 (0-0.9); EOSINOPHILS % (AUTO) 1.4 % (0-6); HEMATOCRIT 42.5 % (42.0-52.0); HEMOGLOBIN 13.9 g/dl (14.0-17.9); LYMPHOCYTES # (AUTO) 0.1 X10'3 (1.1-4.8); LYMPHOCYTES % (AUTO) 0.7 % (21-51); MEAN CORPUSCULAR HEMOGLOBIN 30.9 PG (27.0-31.0); MEAN CORPUSCULAR HGB CONC 32.7 % (33.0-36.5); MEAN CORPUSCULAR VOLUME 94.3 FL (78-98); MEAN PLATELET VOLUME 8.1 FL (7.4-10.4); MONOCYTES # (AUTO) 0.6 X10'3 (0-0.9); MONOCYTES % (AUTO) 2.7 % (2-12); NEUTROPHILS # (AUTO) 20.5 X10'3 (1.8-7.7); NEUTROPHILS % (AUTO) 95.2 % (42-75); PLATELET COUNT 285 X10'3 (140-440); RED BLOOD COUNT 4.51 X10'6 (4.70-6.10); RED CELL DISTRIBUTION WIDTH 14.1 % (11.5-14.5); WHITE BLOOD COUNT 21.5 X10'3 (4.5-11.0)
[2017-05-15] MEDS: amiodarone/D5 450MG/250ML BAG 250 ML IV SCH (04:51)
[2017-05-15] MEDS: ipratropium/albuterol 3ml nebule NEB SCH ×2 (04:54→11:40)
[2017-05-15 04:56] LABS: ALANINE AMINOTRANSFERASE 218 U/L (12-78); ALBUMIN 1.9 G/DL (3.4-5.0); ALBUMIN/GLOBULIN RATIO 0.6 (1.1-1.5); ALKALINE PHOSPHATASE 115 IU/L (46-116); ANION GAP 5 (8-16); ASPARTATE AMINO TRANSFERASE 112 U/L (10-37); BILIRUBIN,TOTAL 0.8 MG/DL (0.1-1.0); BLOOD UREA NITROGEN 72 MG/DL (7-18); BUN/CREATININE RATIO 69.9 (5.4-32.0); CALCIUM 9.1 MG/DL (8.5-10.1); CHLORIDE 110 MMOL/L (99-107); CREATININE 1.03 MG/DL (0.60-1.10); GLUCOSE 142 MG/DL (70-104); MAGNESIUM 2.8 MG/DL (1.5-2.4); PHOSPHORUS 2.4 MG/DL (2.3-4.5); POTASSIUM 4.3 MMOL/L (3.5-5.1); SODIUM 148 MMOL/L (135-145); TOTAL CARBON DIOXIDE 32.6 MMOL/L (24-32); TOTAL PROTEIN 5.2 G/DL (6.4-8.2); eGFR 69 ML/MIN
[2017-05-15 05:21] LABS: ABG BASE EXCESS 3.1 mmol/L (-2.0-3.0); ABG OXYGEN SATURATION 90.2 % (95-98); ABG PCO2 (T) 42.5 mmHg (35.0-48.0); ABG PH (T) 7.434 (7.350-7.450); ABG PO2 (T) 55.7 mmHg (83-108); ALLEN'S TEST Positive; FCOHb 0.6 % (0.5-1.5); FMetHb 0.2 % (0.3-1.12); FO2Hb 89.5 % (94-100); MINUTE VOLUME 13 L/min; PATIENT TEMPERATURE 36.2; PEEP 5 cm H2O; RESPIRATORY RATE (OBSERVED) 15 b/min; TOTAL HEMOGLOBIN 14.7 G/dl (14.0-18.0)
[2017-05-15] MEDS: cefTRIAXone 1g/NS 100ml IVPB 100 ML IV SCH (07:50)
[2017-05-15] MEDS: furosemide 40mg tablet PO SCH (07:51)
[2017-05-15] MEDS: apixaban 5mg tablet PO SCH (07:51)
[2017-05-15] MEDS: potassium Cl oral solution 20 MEQ/15 ML PO SCH (07:51)
[2017-05-15] MEDS: azithromycin 250mg tablet PO SCH (07:51)
[2017-05-15] MEDS: lactobacillus rhamnosus 10,000 MMU CELLS/CAPSULE PO SCH (07:51)
[2017-05-15] MEDS: K and/or MAG REPLACEMENT MC SCH (08:00)
[2017-05-15] MEDS ORDERED: digoxin 250mcg/ml 2ml ampule IV SCH (08:00)
[2017-05-15] MEDS: Protein Shake (high protein) 240ml (8oz) cup PO SCH ×2 (08:00→11:19)
[2017-05-15] MEDS: insulin regular, human vial - multi-dose SQ SCH (08:18)
[2017-05-15] MEDS ORDERED: morphine 10mg/ml inj. IV PRN (11:45)
[2017-05-15] MEDS: LORazepam 2 mg/ml vial IV PRN ×2 (11:55→15:51)
[2017-05-15] MEDS: morphine 4 MG/ML inj SYRINge IV PRN ×8 (12:55→20:15)
[2017-05-16] MEDS: morphine 4 MG/ML inj SYRINge IV PRN ×3 (05:44→19:54)
[2017-05-16 06:32] LABS: ABG HCO3 26.8 mmol/L (22.0-26.0)
[2017-05-16 06:33] LABS: TOTAL HEMOGLOBIN 14.3 G/dl (14.0-18.0)
[2017-05-16 06:34] LABS: FCOHb 0.3 % (0.5-1.5); FMetHb 0.1 % (0.3-1.12); FO2Hb 89.3 % (94-100)
[2017-05-16 06:35] LABS: ABG OXYGEN SATURATION 89.7 % (95-98)
[2017-05-16 08:00] VITALS: BP 126/76
[2017-05-16] MEDS: LORazepam 2 mg/ml vial IV PRN ×2 (11:21→16:22)
[2017-05-16 13:10] VITALS: BP 126/76
[2017-05-16 22:44] VITALS: BP 132/76
[2017-05-17] MEDS: morphine 4 MG/ML inj SYRINge IV PRN ×8 (03:56→21:04)
[2017-05-17 10:00] VITALS: BP 129/80
[2017-05-17] MEDS: LORazepam 2 mg/ml vial IV PRN ×2 (11:25→15:16)
[2017-05-17 22:20] VITALS: BP 112/61
[2017-05-18] MEDS: morphine 4 MG/ML inj SYRINge IV PRN ×7 (00:11→21:31)
[2017-05-18 10:00] VITALS: BP 142/57
[2017-05-18] MEDS: dextrose 5%-normal saline 1,000 ML IV SCH (17:19)
[2017-05-18 22:00] VITALS: BP 92/54
[2017-05-19] MEDS: morphine 4 MG/ML inj SYRINge IV PRN ×4 (05:27→17:01)
[2017-05-19] MEDS: dextrose 5%-normal saline 1,000 ML IV SCH (08:26)
[2017-05-19 09:45] VITALS: BP 117/73
[2017-05-19] MEDS: LORazepam 2 mg/ml vial IV PRN (14:15)
[2017-05-19 22:00] VITALS: BP 110/66
[2017-05-20] MEDS: morphine 4 MG/ML inj SYRINge IV PRN ×5 (00:58→22:29)
[2017-05-20 10:00] VITALS: BP 133/72
[2017-05-20] MEDS: LORazepam 2 mg/ml vial IV PRN (13:04)
[2017-05-21] MEDS: morphine 2 MG/ML inj. syringe IV PRN ×4 (04:59→16:34)
[2017-05-21] MEDS: dextrose 5%-normal saline 1,000 ML IV SCH (05:08)
[2017-05-21] MEDS: LORazepam 2 mg/ml vial IV PRN ×2 (07:51→14:51)
[2017-05-21 10:00] VITALS: BP 110/62
[2017-05-21 22:00] VITALS: BP 108/54
[2017-05-22] MEDS: morphine 2 MG/ML inj. syringe IV PRN ×5 (01:03→23:26)
[2017-05-22] MEDS: LORazepam 2 mg/ml vial IV PRN ×3 (08:21→21:56)
[2017-05-22 10:00] VITALS: BP 126/72
[2017-05-22 22:00] VITALS: BP 102/69
== END 2017-05-23 05:00 | disposition expired | DRG 208 ==
LOC: ER 09:55 → ED HOLD 13:15 → PCU 3S 05-06 08:15 → ICU 2S 05-11 01:51 → ORTHO 4S 05-15 19:40
PROVIDERS: ADMIT Family Medicine; ATTEND Family Medicine
PROC: 5A09457 Assistance with Respiratory Ventilation, 24-96 Consecutive Hours, Continuous Positive Airway Pressure (ICD-10-PCS; principal; 2017-05-06)
PROC: B3201ZZ Computerized Tomography (CT Scan) of Thoracic Aorta using Low Osmolar Contrast (ICD-10-PCS; 2017-05-09)
PROC: 5A1945Z Respiratory Ventilation, 24-96 Consecutive Hours (ICD-10-PCS; 2017-05-11)
PROC: 0BH17EZ Insertion of Endotracheal Airway into Trachea, Via Natural or Artificial Opening (ICD-10-PCS; 2017-05-11)
PROC: 02HV33Z Insertion of Infusion Device into Superior Vena Cava, Percutaneous Approach (ICD-10-PCS; 2017-05-11)
PROC: B548ZZA Ultrasonography of Superior Vena Cava, Guidance (ICD-10-PCS; 2017-05-11)
PROC: 0W9930Z Drainage of Right Pleural Cavity with Drainage Device, Percutaneous Approach (ICD-10-PCS; 2017-05-13)
DX: J96.01 Acute respiratory failure with hypoxia (principal); I50.21 Acute systolic (congestive) heart failure; J18.9 Pneumonia, unspecified organism; N17.9 Acute kidney failure, unspecified; I48.91 Unspecified atrial fibrillation; D64.9 Anemia, unspecified; J84.10 Pulmonary fibrosis, unspecified; J93.9 Pneumothorax, unspecified; Z51.5 Encounter for palliative care; Z66 Do not resuscitate; Z79.899 Other long term (current) drug therapy; Z85.46 Personal history of malignant neoplasm of prostate; Z86.73 Personal history of transient ischemic attack (TIA), and cerebral infarction without residual deficits
CPT/HCPCS: 32557; 36415; 36569; 36600; 71045; 71275; 76937; 80048; 80053; 80061; 80162; 82803; 82948; 83036; 83735; 83880; 84100; 84134; 84443; 84484; 85018; 85025; 85027; 85610; 85730; 87070; 87502; 87503; 93005; 93306; 94002; 94003; 94640; 94760; 96374; 97110; 97116; 97162; 97530; 99285; A4333; A4414; A6212; A6213; A6222; A6257; A6402; A6449; A7015; C9132; J0282; J0696; J1160; J1644; J1815; J1940; J2060; J2250; J2270; J2930; J3490; J7030; J7042; Q9967